=== PATIENT | female | born 1995 | race Caucasian/White ===

== ENCOUNTER 2017-12-30 00:36 | Inpatient (IN) | payer OTHER ==
[2017-12-30] MEDS ORDERED: SUBLIMAZE IV PRN (01:16)
[2017-12-30 01:39] LABS: Hematocrit 32.4 % (30.3-42.9); Hemoglobin 11.1 gm/dl (10.1-14.3); Mean Corpuscular HGB Conc 34 % (30-34); Mean Corpuscular Hemoglobin 30 pg (28-32); Mean Corpuscular Volume 87 fl (79-97); Red Blood Count 3.74 M/mm3 (3.65-5.03); Red Cell Distribution Width 13.4 % (13.2-15.2)
[2017-12-30] MEDS: LACTATED RINGERS 1,000 ML IV SCH ×3 (01:53→04:57)
[2017-12-30 01:58] LABS: Platelet Count 107 K/mm3 (140-440)
[2017-12-30] MEDS ORDERED: PITOCin/NS 20 UNIT/1000ML DRIP 20 UNITS/1,000 ML BAG IV SCH (02:00)
[2017-12-30] MEDS ORDERED: ePHEDrine SULFATE ONE (02:59)
[2017-12-30] MEDS ORDERED: NARCAN 0.4 MG/1 ML IV PRN ×2 (03:00→03:21)
[2017-12-30] MEDS ORDERED: SODIUM CHLORIDE FLUSH SYRINGE 10 ML IV PRN ×2 (03:00→03:21)
[2017-12-30] MEDS ORDERED: XYLOCAINE MPF 2% ONE (03:03)
--- NOTE | 2017-12-30 03:05 | Anesthesia Consultation ---
Anesthesia Consult and Med Hx Date of service: 12/30/17 - Airway Anesthetic Teeth Evaluation: Good ROM Head & Neck: Adequate Mental/Hyoid Distance: Adequate Mallampati Class: Class I Intubation Access Assessment: Good - Pulmonary Exam CTA: Yes - Cardiac Exam Cardiac Exam: RRR - Pre-Operative Health Status ASA Pre-Surgery Classification: ASA1 Proposed Anesthetic Plan: Epidural - Pulmonary Hx Asthma: No COPD: No Hx Pneumonia: No - Cardiovascular System Hx Hypertension: No - Central Nervous System Hx Seizures: No Hx Psychiatric Problems: No - Endocrine Hx Renal Disease: No Hx End Stage Renal Disease: No Hx Hypothyroidism: No Hx Hyperthyroidism: No - Hematic Hx Anemia: No Hx Sickle Cell Disease: No - Other Systems Hx Alcohol Use: No
--- NOTE | 2017-12-30 03:53 | History and Physical Report ---
History of Present Illness Date of examination: 12/30/17 (pt called c/o worsening ctx Sent to Triage) Date of admission: 12/30/17 01:35 Chief complaint: worsening ctx History of present illness: EDC Confirmation: 12/28/2017 Gestational Age: 24 1/7 weeks Past History : 1 Term Births: 0 Premature Births: 0 Living Children: 0 Para: 0 Mult. Births: 0 Prev : 0 Prev. attempt? 0 Aborta: 0 Elect. Ab: 0 Spont. Ab: 0 Ectopics: 0 Past Medical History: Negative Past Medical History Past Surgical History: Negative Past Surgical History Family History Summary: Other family member - Has No Family History of Ovarvian Cancer - Entered On: Other family member - Has No Family History of Colon Cancer - Entered On: 2016 Other family member - Has Family History of Lung Cancer - Entered On: 09/08/2017 Other family member - Has Family History of Hypertension - Entered On: 2016 Other family member - Has Family History of CVA or Stroke - Entered On: 2016 Other family member - Has Family History of Coronary Heart Disease - Entered On : 09/08/2017 Other family member - Has Family History Breast Cancer - Entered On: 09/08/2017 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 of genital herpes: no Genetic History Congenital Heart Defect: Mom: no Dad: no Morena Disease: Mom: no Dad: no Thalassemia Mom: no Dad: no Neural Tube Defect Mom: no Dad: no Down's Syndrome Mom: no Dad: no Orville-Sachs Mom: no Dad: no Sickle Cell Disease/Trait Mom: no Dad: no Hemophilia Mom: no Dad: no Muscular Dystrophy Mom: no Dad: no Cystic Fibrosis Mom: no Dad: no [place] Chorea Mom: no Dad: no Mental Retardation Mom: no Dad: no Fragile X Mom: no Dad: no Other Genetic/Chromosomal Disorder Mom: no Dad: no Child w/other defect Mom: no Dad: no Active Medications (reviewed today): IBUPROFEN 600 MG ORAL TABLET (Ibuprofen) Current Allergies (reviewed today): No known allergies Laboratory Results Date/Time Collected: 09/08/2017 Routine Urinalysis Protein: Negative Glucose: Negative Urine HCG: positive Review of Systems General Complains of fatigue. Denies fever, chills, sweats, anorexia, weakness, malaise, weight loss and sleep disorder. Complains of pelvic pain. Denies vaginal discharge, incontinence, dysuria, hematuria, urinary frequency, amenorrhea, menorrhagia, abnormal vaginal bleeding, genital sores, decreased libido, painful periods, painful sex, urinary urgency, hot flashes, vaginal dryness, vaginal itching and vaginal odor. CV Denies chest pains, palpitations, syncope, dyspnea on exertion, orthopnea, PND and peripheral edema. Resp Denies cough, dyspnea at rest, excessive sputum, hemoptysis, wheezing and pleurisy. GI Complains of nausea and vomiting. Denies diarrhea, constipation, change in bowel habits, abdominal pain, melena, hematochezia, jaundice, gas/bloating, indigestion/heartburn, dysphagia and odynophagia. Breast Complains of breast pain. Denies left breast lump, right breast lump, nipple discharge, bloody discharge from nipple, abnormal mammogram and breast enlargement. Psych Denies depression, anxiety, irritability and mood swings. PHYSICAL EXAM HEENT: normocephalic, no lesions or deformities Neck/Thyroid: supple, thyroid normal Skin no significant abnormal lesions or rashes Chest: respiratory effort normal, clear to auscultation Breasts: skin/areolae normal, no masses, no nipple discharge, no erythema/warmth /tenderness, and axillae normal. 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 Vulva/Vagina: No lesions, normal BUS, normal rugae Cervix: No lesions; no cervical motion tenderness Uterus: enlarged uterus 26-28 weeks in size Adnexae: Unable to palpate due to uterine size Rectovaginal: exam defered Past History - Obstetrical History Expected Date of Delivery: 12/28/17 Actual Gestation: 40 Week(s) 2 Day(s) : 1 Para: 0 Number of Living Children: 0 Medications and Allergies Allergies Allergy/AdvReac Type Severity Reaction Status Date / Time No Known Allergies Allergy Unverified 12/30/17 00:37 Home Medications Medication Instructions Recorded Confirmed Last Taken Type Vit-Fe Fumar-FA [ 1 tab PO QDAY 12/30/17 12/30/17 12/29/17 21: 00 History Vitamin] Active Meds: Active Medications Fentanyl (Sublimaze) 100 mcg IV Q2H PRN PRN Reason: Labor Pain Last Admin: 12/30/17 02:19 Dose: 100 mcg Lactated Ringer's (Lactated Ringers) 1,000 mls @ 125 mls/hr IV DIRECT PERNELL Last Admin: 12/30/17 02:45 Dose: 999 mls/hr Oxytocin/Sodium Chloride (Pitocin/Ns 20 Unit/1000ml Drip) 20 units in 1,000 mls @ 125 mls/hr IV DIRECT PERNELL Fentanyl/Bupivacaine/Sodium Chlor (Fentanyl-Bupiv 2 Mcg/Ml-0.125%) 200 mcg in 100 mls @ 12 mls/hr EPIDURAL ONCE ONE Stop: 12/30/17 12:19 Naloxone HCl (Narcan 0.4 Mg/1 Ml) 0.2 mg IV Q5M PRN PRN Reason: Res Rate </= 8 or 02 SAT < 92% Naloxone HCl (Narcan 0.4 Mg/1 Ml) 0.2 mg IV Q5M PRN PRN Reason: Res Rate </= 8 or 02 SAT < 92% Sodium Chloride (Sodium Chloride Flush Syringe 10 Ml) 10 ml IV PRN PRN PRN Reason: LINE FLUSH Sodium Chloride (Sodium Chloride Flush Syringe 10 Ml) 10 ml IV PRN PRN PRN Reason: LINE FLUSH - Vital Signs Vital signs: Vital Signs Temp Resp 98.4 F 18 12/30/17 00:52 12/30/17 00:52 Temp Pulse Resp BP Pulse Ox 98.4 F 92 H 18 115/68 100 12/30/17 00:52 12/30/17 03:55 12/30/17 00:52 12/30/17 03:52 12/30/17 03:55 - Physical Exam Breasts: Positive: deferred Cardiovascular: Regular rate, Normal S1, Normal S2 Lungs: Positive: Normal air movement Abdomen: Positive: normal appearance, soft, normal bowel sounds. Negative: distention, tenderness Genitourinary (Female): Positive: normal external genitalia, normal perenium Vulva: both: normal Vagina: Positive: normal moisture. Negative: discharge Cervix: Negative: lesion, discharge Uterus: Positive: normal size, normal contour Adnexa: both: normal Anus/Rectum: Positive: normal perianal skin, heme negative. Negative: rectal mass, hemorrhoids Extremities: Positive: normal Deep Tendon Reflex Grade: Normal +2 - Obstetrical FHR: category 1 Uterine Contraction Monitor Mode: External Cervical Dilatation: 3 (per dough mixer) Cervical Effacement Percentage: 90 station: 0 Uterine Contraction Pattern: Regular Uterine Tone Measurement Phase: Resting Uterine Contraction Intensity: Moderate Results Result Diagrams: 12/30/17 01:25 Abnormal lab results 12/30/17 Range/Units 01:25 Plt Count 107 L (140-440) K/mm3 All other labs normal. WHITE BLOOD CELL COUNT 10.5 Thousand/uL 3.8-10.8 *1 RED BLOOD CELL COUNT [L] 3.24 Million/uL 3.80-5.10 *2 HEMOGLOBIN [L] 10.1 g/dL 11.7-15.5 *3 HEMATOCRIT [L] 29.8 % 35.0-45.0 *4 MCV 92.0 fL 80.0-100.0 *5 MCH 31.2 pg 27.0-33.0 *6 MCHC 33.9 g/dL 32.0-36.0 *7 RDW 12.6 % 11.0-15.0 *8 PLATELET COUNT [L] 132 Thousand/uL 140-400 *9 MPV 11.9 fL 7.5-12.5 *10 Tests: (2) OBSTETRIC PANEL (=) ANTIBODY SCREEN, RBC W/REFL ID, TITER AND AG "Result Below..." *11 RESULT: NO ANTIBODIES DETECTED Reference range No antibodies detected This assay is a screening test for the detection of red blood cell antibodies. The test is not to be used for pretransfusion screening or for the medical management of an alloimmunized . STREPTOCOCCUS, GROUP B CULTURE <No Reported Value> *7 STREPTOCOCCUS, GROUP B CULTURE MICRO NUMBER: [id number] TEST STATUS: FINAL SPECIMEN SOURCE: VAGINAL/ANORECTAL SPECIMEN QUALITY: ADEQUATE RESULT: No group B Streptococcus isolated Tests: (3) OBSTETRIC PANEL ([id number]=) ABO GROUP B *12 RH TYPE RH(D) POSITIVE *13 Tests: (4) OBSTETRIC PANEL ([id number]=) RPR (DX) W/REFL TITER AND CONFIRMATORY TESTING NON-REACTIVE NON-REACTIVE *14 Tests: (5) OBSTETRIC PANEL ([id number]=) HEPATITIS B SURFACE ANTIGEN NON-REACTIVE NON-REACTIVE *15 Tests: (6) OBSTETRIC PANEL ([id number]=) RUBELLA ANTIBODY (IGG) 1.96 index IMMUNE Tests: (7) GLUCOSE, GESTATIONAL SCREEN (50G)-135 CUTOFF (8477SB=) GLUCOSE, GESTATIONAL SCREEN (50G)-135 CUTOFF 89 mg/dL <135 *17 Tests: (8) CYSTIC FIBROSIS SCREEN ([id number]=) ! ETHNICITY: N/P *18 ! CF RESULT see note *19 NEGATIVE, Tests: (9) SICKLE CELL SCREEN W/REFL HEMOGLOBINOPATHY EVAL ([id number]=) SICKLE CELL SCREEN NEGATIVE NEGATIVE *24 Tests: (11) HEPATITIS C AB W/REFL TO HCV RNA, QN, PCR ([id number]=) HEPATITIS C ANTIBODY NON-REACTIVE NON-REACTIVE *40 ! SIGNAL TO CUT-OFF 0.00 <1.00 *41 Tests: (12) HIV 1/2 ANTIGEN/ANTIBODY,FOURTH GENERATION W/RFL ([id number]=) ! HIV AG/AB, 4TH GEN NON-REACTIVE NON-REACTIVE *42 Tests: (13) CULTURE, URINE, ROUTINE (395X=) CULTURE, URINE, ROUTINE <No Reported Value> *43 CULTURE, URINE, ROUTINE MICRO NUMBER: [id number] TEST STATUS: FINAL SPECIMEN SOURCE: NOT GIVEN SPECIMEN QUALITY: ADEQUATE RESULT: No Growth Assessment and Plan 22yo @ 40 weeks presents in active labor GBS negative. hydronephrosis identified and followed by [facility]. NICU notified and given most recent report of evaluation. All orders in EMR Anticipate delivery.
[2017-12-30] MEDS ORDERED: fentaNYL-BUPIV 2 MCG/ML-0.125% 200 MCG/100 ML BAG EPIDURAL ONE (04:00)
[2017-12-30] MEDS ORDERED: MINERAL OIL PO PRN (04:16)
[2017-12-30] MEDS ORDERED: BRETHINE SUB-Q PRN (04:16)
[2017-12-30] MEDS ORDERED: ePHEDrine SULFATE IV PRN (04:16)
[2017-12-30] MEDS ORDERED: XYLOCAINE 2% INFILTRATI ONE (04:16)
--- NOTE | 2017-12-30 04:16 | Progress Note ---
Assessment and Plan Cont. observation Start pitocin per protocol Anticipate delivery Subjective - Subjective Date of service: 12/30/17 (comfortable with epidural) Principal diagnosis: IUP @ 40 weeks Interval history: EDC Confirmation: 12/28/2017 Gestational Age: 24 1/7 weeks Past History : 1 Term Births: 0 Premature Births: 0 Living Children: 0 Para: 0 Mult. Births: 0 Prev : 0 Prev. attempt? 0 Aborta: 0 Elect. Ab: 0 Spont. Ab: 0 Ectopics: 0 Past Medical History: Negative Past Medical History Past Surgical History: Negative Past Surgical History Family History Summary: Other family member - Has No Family History of Ovarvian Cancer - Entered On: Other family member - Has No Family History of Colon Cancer - Entered On: 2016 Other family member - Has Family History of Lung Cancer - Entered On: 09/08/2017 Other family member - Has Family History of Hypertension - Entered On: 2016 Other family member - Has Family History of CVA or Stroke - Entered On: 2016 Other family member - Has Family History of Coronary Heart Disease - Entered On : 09/08/2017 Other family member - Has Family History Breast Cancer - Entered On: 09/08/2017 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 of genital herpes: no Genetic History Congenital Heart Defect: Mom: no Dad: no Morena Disease: Mom: no Dad: no Thalassemia Mom: no Dad: no Neural Tube Defect Mom: no Dad: no Down's Syndrome Mom: no Dad: no [place]-Sachs Mom: no Dad: no Sickle Cell Disease/Trait Mom: no Dad: no Hemophilia Mom: no Dad: no Muscular Dystrophy Mom: no Dad: no Cystic Fibrosis Mom: no Dad: no [place] Chorea Mom: no Dad: no Mental Retardation Mom: no Dad: no Fragile X Mom: no Dad: no Other Genetic/Chromosomal Disorder Mom: no Dad: no Child w/other defect Mom: no Dad: no Active Medications (reviewed today): IBUPROFEN 600 MG ORAL TABLET (Ibuprofen) Current Allergies (reviewed today): No known allergies Laboratory Results Date/Time Collected: 09/08/2017 Routine Urinalysis Protein: Negative Glucose: Negative Urine HCG: positive Review of Systems General Complains of fatigue. Denies fever, chills, sweats, anorexia, weakness, malaise, weight loss and sleep disorder. Complains of pelvic pain. Denies vaginal discharge, incontinence, dysuria, hematuria, urinary frequency, amenorrhea, menorrhagia, abnormal vaginal bleeding, genital sores, decreased libido, painful periods, painful sex, urinary urgency, hot flashes, vaginal dryness, vaginal itching and vaginal odor. CV Denies chest pains, palpitations, syncope, dyspnea on exertion, orthopnea, PND and peripheral edema. Resp Denies cough, dyspnea at rest, excessive sputum, hemoptysis, wheezing and pleurisy. GI Complains of nausea and vomiting. Denies diarrhea, constipation, change in bowel habits, abdominal pain, melena, hematochezia, jaundice, gas/bloating, indigestion/heartburn, dysphagia and odynophagia. Breast Complains of breast pain. Denies left breast lump, right breast lump, nipple discharge, bloody discharge from nipple, abnormal mammogram and breast enlargement. Psych Denies depression, anxiety, irritability and mood swings. PHYSICAL EXAM HEENT: normocephalic, no lesions or deformities Neck/Thyroid: supple, thyroid normal Skin no significant abnormal lesions or rashes Chest: respiratory effort normal, clear to auscultation Breasts: skin/areolae normal, no masses, no nipple discharge, no erythema/warmth /tenderness, and axillae normal. 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 Vulva/Vagina: No lesions, normal BUS, normal rugae Cervix: No lesions; no cervical motion tenderness Uterus: enlarged uterus 26-28 weeks in size Adnexae: Unable to palpate due to uterine size Rectovaginal: exam defered Patient reports: movement normal Objective - Vital Signs Vital Signs: Vital Signs - 12hr 12/30/17 12/30/17 12/30/17 00:52 00:55 02:15 Temperature 98.4 F Pulse Rate 82 86 Respiratory 18 Rate Blood Pressure 119/77 O2 Sat by Pulse 99 Oximetry 12/30/17 12/30/17 12/30/17 02:20 02:25 02:30 Temperature Pulse Rate 75 72 78 Respiratory Rate Blood Pressure 135/77 O2 Sat by Pulse 100 100 99 Oximetry 12/30/17 12/30/17 12/30/17 02:35 02:40 02:45 Temperature Pulse Rate 79 70 76 Respiratory Rate Blood Pressure O2 Sat by Pulse 98 98 100 Oximetry 12/30/17 12/30/17 12/30/17 02:50 02:55 03:00 Temperature Pulse Rate 92 H 71 81 Respiratory Rate Blood Pressure O2 Sat by Pulse 100 100 100 Oximetry 12/30/17 12/30/17 12/30/17 03:05 03:10 03:11 Temperature Pulse Rate 100 H 120 H 118 H Respiratory Rate Blood Pressure O2 Sat by Pulse 100 100 93 Oximetry 12/30/17 12/30/17 12/30/17 03:15 03:17 03:19 Temperature Pulse Rate 126 H 103 H 83 Respiratory Rate Blood Pressure 144/89 117/69 108/69 O2 Sat by Pulse 100 Oximetry 12/30/17 12/30/17 12/30/17 03:20 03:21 03:23 Temperature Pulse Rate 92 H 88 76 Respiratory Rate Blood Pressure 117/76 119/75 O2 Sat by Pulse 100 Oximetry 12/30/17 12/30/17 12/30/17 03:25 03:27 03:29 Temperature Pulse Rate 89 85 82 Respiratory Rate Blood Pressure 113/68 111/68 114/67 O2 Sat by Pulse 100 Oximetry 12/30/17 12/30/17 12/30/17 03:30 03:31 03:33 Temperature Pulse Rate 94 H 100 H 99 H Respiratory Rate Blood Pressure 117/69 114/74 O2 Sat by Pulse 100 Oximetry 12/30/17 12/30/17 12/30/17 03:35 03:37 03:39 Temperature Pulse Rate 100 H 86 80 Respiratory Rate Blood Pressure 114/69 118/72 119/70 O2 Sat by Pulse 100 Oximetry 12/30/17 12/30/17 12/30/17 03:40 03:41 03:45 Temperature Pulse Rate 83 82 103 H Respiratory Rate Blood Pressure 119/56 O2 Sat by Pulse 100 99 Oximetry 12/30/17 12/30/17 12/30/17 03:47 03:50 03:52 Temperature Pulse Rate 86 81 76 Respiratory Rate Blood Pressure 116/66 115/68 O2 Sat by Pulse 100 Oximetry 12/30/17 12/30/17 12/30/17 03:55 03:56 04:00 Temperature Pulse Rate 92 H 72 105 H Respiratory Rate Blood Pressure 107/58 O2 Sat by Pulse 100 100 Oximetry 12/30/17 12/30/17 12/30/17 04:01 04:05 04:06 Temperature Pulse Rate 90 107 H 101 H Respiratory Rate Blood Pressure 118/67 108/67 O2 Sat by Pulse 100 Oximetry 12/30/17 12/30/17 12/30/17 04:10 04:11 04:15 Temperature Pulse Rate 95 H 88 91 H Respiratory Rate Blood Pressure 108/65 O2 Sat by Pulse 100 100 Oximetry 12/30/17 04:16 Temperature Pulse Rate 75 Respiratory Rate Blood Pressure 104/64 O2 Sat by Pulse Oximetry - Exam Breasts: deferred Cardiovascular: Regular rate Lungs: Normal air movement Abdomen: Present: normal appearance, soft. Absent: distention, tenderness Uterus: Present: normal FHR: auscultation normal, category 2 (deep variables corrected with positioning and IVFs) Uterine Contraction Monitor Mode: Internal Cervical Dilatation: 6 (ROM clear fluid) Cervical Effacement Percentage: 100 (ISE applied) station: 0 Uterine Contraction Pattern: Regular Uterine Contraction Intensity: Moderate Extremities: normal Deep Tendon Reflex Grade: Normal +2 - Labs Labs: Abnormal Labs 12/30/17 01:25 Plt Count 107 L Laboratory Results - last 24 hr 12/30/17 12/30/17 01:25 01:32 WBC 10.2 RBC 3.74 Hgb 11.1 Hct 32.4 MCV 87 MCH 30 MCHC 34 RDW 13.4 Plt Count 107 L Blood Type B POSITIVE Antibody Screen Negative
[2017-12-30] MEDS ORDERED: PITOCin/NS 30 UNIT/500ML 30 UNITS/500 ML BAG IV SCH (05:00)
[2017-12-30] MEDS ORDERED: LACTATED RINGERS 1,000 ML IV SCH (05:00)
[2017-12-30] MEDS ORDERED: TYLENOL PO PRN (06:47)
[2017-12-30] MEDS ORDERED: NORCO 5/325 PO PRN (06:47)
[2017-12-30] MEDS ORDERED: PHENERGAN PO PRN (06:47)
[2017-12-30] MEDS ORDERED: TUCKS PAD TP PRN (06:47)
[2017-12-30] MEDS ORDERED: DULCOLAX PR PRN (06:47)
[2017-12-30] MEDS ORDERED: LANSINOH TP PRN (06:47)
[2017-12-30] MEDS ORDERED: ZOFRAN IV PRN (06:47)
[2017-12-30] MEDS ORDERED: MILK OF MAGNESIA PO PRN (06:47)
[2017-12-30] MEDS ORDERED: PERCOCET 5/325 PO PRN (06:47)
[2017-12-30] MEDS ORDERED: BENADRYL PO PRN (06:47)
--- NOTE | 2017-12-30 06:59 | Procedure Note ---
OB Delivery Note - Delivery Date of Delivery: 12/30/17 Storehouse Clerk: SACHIN BARRAZA Estimated blood loss: 500cc - Vaginal Delivery presentation: vertex Delivery position: OA Intrapartum events: other(please specify) ( hydronephrosis) Delivery induction: none Delivery augmentation: pitocin Delivery monitor: external uterine, internal FHT Route of delivery: Delivery placenta: spontaneous Delivery cord: 3 umbilical vessels Episiotomy: midline (second degree) Delivery laceration: 4th degree (repaired in the usual fashion; rectal exam post repair intact) Delivery repair: vicryl Anesthesia: local, epidural Delivery comments: vaginal delivery complicated by 4th degree laceration live born male over second degree episiotomy Baby to mom's abdomen skin to skin. Baby depressed despite drying and stim NICU called to eval. Baby responded well to further drying and warming, some suctioning done. Placenta and membrane del complete and intact, 3 vessel cord. 4th degree laceration identified. Pt made aware. Repair done in usual fashion. Rectal exam post repair intact, no communication palpated. Pt tolerated repair well over epidural and lidocaine. 3-0 and 2-0 vicryl for repair. EBL 500 8/9 Wgt 8- 9. Pit IVFs. Mom and baby remain LDR stable. Laceration/wound care discussed with pt All questions addressed. - A at 1 minute: 8 at 5 minutes: 9 Gender: Male (wgt 8-9)
[2017-12-30] MEDS ORDERED: SODIUM CHLORIDE FLUSH SYRINGE 10 ML IV NR (07:00)
[2017-12-30] MEDS: ANCEF/STERILE WATER 2 GM/20 ML 2 GM/20 ML SYRINGE IV SCH ×2 (07:37→16:06)
[2017-12-30] MEDS ORDERED: DERMOPLAST TP PRN (11:00)
[2017-12-30] MEDS: MOTRIN PO SCH ×2 (11:15→22:32)
[2017-12-30] MEDS: PRENATAL VITAMIN PO SCH (11:55)
[2017-12-30] MEDS: COLACE PO SCH ×2 (11:57→22:32)
[2017-12-31] MEDS: SENOKOT S PO SCH ×2 (00:22→23:46)
[2017-12-31] MEDS: MOTRIN PO SCH ×3 (04:15→23:47)
[2017-12-31] MEDS ORDERED: BOOSTRIX IM ONE (06:00)
[2017-12-31] MEDS ORDERED: M-M-R II VACCINE SUB-Q ONE (06:00)
--- NOTE | 2017-12-31 11:46 | Progress Note ---
Assessment and Plan - Patient Problems (1) Fourth degree perineal laceration Current Visit: Yes Status: Acute (2) Spontaneous vaginal delivery Current Visit: Yes Status: Acute Plan to address problem: -routine pp care -d/c home in the am Subjective - Subjective Date of service: 12/31/17 Principal diagnosis: PPD #1 s/p with 4th degree lac Interval history: pt doing well and states pain is well controlled. Pt desires d/c home in the am. will plan for d/c at this time if remains afvss Patient reports: appetite normal, voiding normally, pain well controlled [place]: doing well Objective - Vital Signs Latest vital signs: Vital Signs Temp Pulse Resp BP Pulse Ox 12/31/17 08:45 98.7 F 95 H 18 105/68 100 12/31/17 01:48 98.1 F 89 20 98/65 98 12/30/17 16:28 98.5 F 95 H 18 110/72 98 Intake and Output 12/30/17 12/31/17 12/31/17 22:59 06:59 14:59 Intake Total 240 240 Output Total 1050 Balance -810 240 Intake: Oral 240 120 Intake, Free Water 120 Output: Urine 1050 Void 1050 Other: Total, Intake Amount 240 120 Total, Output Amount 1050 - Exam Breasts: Present: deferred Cardiovascular: Present: Regular rate, Normal S2 Lungs: Present: Clear to auscultation, Normal air movement Abdomen: Present: normal appearance, soft. Absent: distention, tenderness, guarding Uterus: Present: normal, firm, fundal height below umbilicus Extremities: Present: normal. Absent: tenderness, edema - Labs Labs: Abnormal lab results 12/30/17 Range/Units 17:38 Hgb 9.0 L (10.1-14.3) gm/dl Hct 27.0 L (30.3-42.9) %
[2017-12-31] MEDS: COLACE PO SCH ×2 (11:50→23:46)
[2017-12-31] MEDS: PRENATAL VITAMIN PO SCH (11:51)
--- NOTE | 2017-12-31 12:58 | Discharge Summary ---
Providers - Providers Date of Admission: 12/30/17 01:35 Date of discharge: 01/01/18 Attending physician: TACOS EWING Primary care physician: TACOS EWING Hospitalization Reason for admission: active labor Delivery: Procedure details: see delivery note Laceration: 4th degree Other procedures: none complications: none Discharge diagnosis: IUP at term delivered Hospital course: s/p vaginal delivery. see delivery note for details. pt doing well. she desires d/c home in the am. Pt will be d/c home in the am if remains AFVSS. Condition at discharge: Good Disposition: DC-01 TO HOME OR SELFCARE - Discharge Diagnoses (1) Fourth degree perineal laceration Status: Acute (2) Spontaneous vaginal delivery Status: Acute Plan - Discharge Medications Prescriptions: Ibuprofen 800 mg PO Q6HR #30 tablet - Provider Discharge Summary Activity: routine, no sex for 6 weeks, no heavy lifting 4 weeks, no strenuous exercise Diet: routine Instructions: routine Additional instructions: [] Smoking cessation referral if applicable(refer to patient education folder for contact #) [] Refer to [facility] Booklet Call your doctor immediately for: * Fever > 100.5 * Heavy vaginal bleeding ( >1 pad per hour) * Severe persistent headache * Shortness of breath * Reddened, hot, painful area to leg or breast * Drainage or odor from incision. * Keep incision clean and dry at all times and follow doctor's instructions regarding bathing/showering - Follow up plan Follow up: TACOS EWING MD [Primary Care Provider] - 7 Days (make apt for visit in 4 wks in the office of [facility])
[2018-01-01] MEDS: SENOKOT S PO SCH (08:04)
[2018-01-01] MEDS: MOTRIN PO SCH (08:04)
[2018-01-01] MEDS: COLACE PO SCH (11:05)
[2018-01-01] MEDS: PRENATAL VITAMIN PO SCH (11:05)
[2018-01-01 16:12] VITALS: BP 107/71
== END 2018-01-01 14:00 | disposition home or self-care (01) | DRG 775 ==
LOC: TRG 00:36 → LD 01:35 → OB 10:03
PROVIDERS: ADMIT Obstetrics & Gynecology; ATTEND Obstetrics & Gynecology
PROC: 10E0XZZ Delivery of Products of Conception, External Approach (ICD-10-PCS; principal; 2017-12-30)
PROC: 0DQP0ZZ Repair Rectum, Open Approach (ICD-10-PCS; 2017-12-30)
PROC: 0W8NXZZ Division of Female Perineum, External Approach (ICD-10-PCS; 2017-12-30)
PROC: 3E0R3BZ Introduction of Anesthetic Agent into Spinal Canal, Percutaneous Approach (ICD-10-PCS; 2017-12-30)
PROC: 00HU33Z Insertion of Infusion Device into Spinal Canal, Percutaneous Approach (ICD-10-PCS; 2017-12-30)
PROC: 3E0234Z Introduction of Serum, Toxoid and Vaccine into Muscle, Percutaneous Approach (ICD-10-PCS; 2017-12-31)
DX: O35.8XX0 Maternal care for other (suspected) fetal abnormality and damage, not applicable or unspecified (principal); O70.3 Fourth degree perineal laceration during delivery; Z82.3 Family history of stroke; Z82.49 Family history of ischemic heart disease and other diseases of the circulatory system; Z80.3 Family history of malignant neoplasm of breast; Z80.1 Family history of malignant neoplasm of trachea, bronchus and lung; Z23 Encounter for immunization
CPT/HCPCS: 36415; 85014; 85018; 85027; 86592; 86850; 86900; 86901; 88307; 99211; A6250; G0463; J0690; J2590; J3010; J7120